=== PATIENT | female | born 2000 | race Caucasian/White ===

== ENCOUNTER 2023-08-12 07:49 | Inpatient (IN) ==
[2023-08-12] MEDS ORDERED: LIDOCAINE 1% LOCAL 20 ML VIAL INFIL PRN (08:06)
[2023-08-12] MEDS ORDERED: CALCIUM CARBONATE 500 MG CHEWABLE TAB PO PRN (08:06)
[2023-08-12] MEDS ORDERED: OXYTOCIN 30 UNITS/NSS 30 UNITS/500 ML BAG IV PRN (08:06)
--- NOTE | 2023-08-12 08:14 | History & Physical Report ---
Date of Service August 12, 2023 Assessment & Plan (1) Encounter for induction of labor: Plan: pitocin arom when indicated monitor tracing, category 1 Admission and Anticipated Discharge Date Admission Date: August 12, 2023 History of Present Illness Primary Care Provider: Thompson Quintero MD 23 yo at 39w3d admitted for IOL. Attempted nails placement last night, unable to place Denies MCDANIELS, CP, SOB, N/V/D, LE pain. GBS neg, RH+, +FM, -LOF, -CTX Allergies Allergy/AdvReac Type Severity Reaction Status Date / Time No Known Allergies Allergy Mild Verified 08/12/23 08:31 Home Medications Medication Instructions Recorded Confirmed Type aspirin 81 mg tablet 81 mg PO DAILY 08/11/23 08/12/23 History ferrous sulfate 325 mg (65 mg 325 mg PO Q OTHER DAY 08/11/23 08/12/23 History iron) tablet vits no.124-ferrous fum 1 tab PO DAILY 08/12/23 08/12/23 History 27 mg iron-folic acid 800 mcg tablet ( Vitamin) Patient History Medical History Varicella vaccination Morbid obesity with BMI of 40.0-44.9, adult History of COVID-19 diagnosed 03/2020--mild symptoms, no symptoms now Macromastia Anxiety and depression Seizure-like activity per pt seizure was ruled out. last seizure november 2019. Convulsive syncope hx of--followed with [facility]--was cleared of cardiac issues and follows with PCP Chest discomfort hx of--followed with [facility]--was cleared of cardiac issues and follows with PCP Surgical History S/P bilateral breast reduction History of wisdom tooth extraction Family History Father Hyperlipemia Hypertension Grandmother Type 2 diabetes mellitus Factor V Leiden mutation Hypertension Grandfather Hypertension Other Myocardial infarction No family history of adverse response to anesthesia Denies family history of Ovarian cancer Prostate cancer Breast cancer Colorectal cancer Social History Smoking Status: Never smoker Tobacco Type: E-cigarettes / Vaping Second Hand Exposure: No; Do You Dip or Chew Tobacco: No; Hx Alcohol Use: Yes Hx Substance Use: No Preferred Language: Honduran Communication Ability: Effective Pneumatic Jacketer Required: No Beliefs That Will Affect Care: None marital status: Single marital status details: nishant Fuentes (23) [phone] Current Living Situation: Family Current Living Situation Comment: mom/dad, sister and Jean-Pierre current occupational status: employed current occupation: [email or web address] Other Information That Helps Us Care for You: No Feels Safe at Home: Yes Safety Concerns: Feels Safe At This Time Childhood Exposure to Second-Hand Smoke: No Dental Care, Regularly: Yes Assistive Devices: Glasses OB History History : 1 Full term: 0 Premature: 0 Total Number of Induced Abortions: 0 Total Number of Spontaneous Abortions: 0 Ectopics: 0 Multiple births: 0 Number of Living Children: 0 Menstrual History Last menstrual period: Yes Menstrual reliability: definite Flow: normal Menstrual regularity: regular Monthly: Yes Age at menarche: 12 On control pills at conception: No Date of positive home test: 12/13/22 Menstrual history comments: cycles 28 days Details: never had pap smear Review of Systems reviewed, per HPI Physical Exam Physical Exam: General: patient resting comfortably, NAD, non-toxic in appearance, answers questions appropriately. Skin: warm, dry, intact HEENT: NC/AT, anicteric sclera, conjunctiva without injection, moist mucus membranes Heart: +S1/S2, regular, no m/r/g Lungs: equal air entry bilaterally, no rales/rhonchi/wheezes Abd: +BS, soft, NT, gravid uterus Cervical: per attending Ext: warm, no clubbing/cyanosis or edema Neuro: nonfocal, speech intact, no facial droop, moving all extremities. : FHR baseline 130s, moderate variability, accelerations present, decelerations absent Results & Data Vital Signs (Past 12 Hours) Vital Signs Pulse BP 08/12/23 08:08 81 137/72 Supervising Physician Co-Signing Physician Notes Resident Physician Supervision Note: I interviewed and examined the patient. Discussed with Dr. Terrell and agree with findings and plan as documented in the note. Any exceptions or clarifications are listed here: 23yo @ 39 3/7, IOL. Nails bulb placed twice last night per Dr Casper, fell out both times. Cervix exam this morning, 1-2/thick/-2. Soft cervix. Posterior. FHT Cat 1, no contractions. Will plan for pitocin for IOL. Patient agreeable. She will desire epidural at some point. Documented By: Jo Ann Proctor, DO Resident Activity Tracking Resident Involvement: Resident Care Provided Care Provided: Adult Hospital Medicine
[2023-08-12 08:52] LABS: Hematocrit (blood only) 29.2 % (37.0-47.0); Hemoglobin 9.2 g/dl (12.0-16.0); Mean Corpuscular Hemoglobin 25.1 pg (25.0-34.0); Mean Corpuscular Hgb Conc 31.5 g/dL (32.0-36.0); Mean Corpuscular Volume 79.8 fL (80.0-100.0); Mean Platelet Volume 10.9 fL (9.4-12.4); Platelet Count 192 K/uL (130-400); RDW Coefficient of Variation 16.3 % (11.5-14.5); RDW Standard Deviation 46.6 fL (36.4-46.3); Red Blood Count 3.66 M/uL (4.20-5.40); White Blood Count 11.94 K/ul (4.8-10.8)
[2023-08-12] MEDS: OXYTOCIN 30 UNITS/NSS 30 UNITS/500 ML BAG IV PRN (12:28)
[2023-08-12] MEDS: LACTATED RINGER'S 1,000 ML IV PRN (20:29)
--- NOTE | 2023-08-12 20:55 | Labor Progress Brief Note ---
Date of Service August 12, 2023 Subjective Not feeling contractions. FHT Cat 1 [place] Q 2 Pit at 19. SVE 2/70/-2 Patient is getting frustrated and hungry and wants to walk around. Will stop pitocin. Allow to eat a sandwich and take a walk. Will then restart pitocin, AROM and continue induction. Assessment & Plan Admission and Anticipated Discharge Date Admission Date: August 12, 2023 Results & Data Vital Signs (Past 12 Hours) Vital Signs Temp Pulse Resp BP 08/12/23 19:22 18 08/12/23 19:22 36.8 C 18 08/12/23 19:22 76 08/12/23 19:22 134/79 08/12/23 17:45 71 08/12/23 17:45 137/75 08/12/23 17:15 36.9 C 20 08/12/23 16:52 69 08/12/23 16:52 136/77 08/12/23 15:52 93 H 08/12/23 15:52 142/70 H 08/12/23 15:30 36.9 C 20 08/12/23 14:51 70 08/12/23 14:51 132/72 08/12/23 13:30 16 08/12/23 13:30 80 08/12/23 13:30 129/68 08/12/23 12:27 78 08/12/23 12:27 136/89 08/12/23 11:14 36.6 C 08/12/23 11:11 36.8 C 75 16 127/75 08/12/23 11:10 75 08/12/23 11:10 127/75 Coding Level of Care Code None
--- NOTE | 2023-08-12 23:06 | Labor Progress Brief Note ---
Date of Service August 12, 2023 Subjective Has eaten, has ambulated. Feels much better. Cervix exam unchanged. FHT Cat 1 [place] occasional. Restart pitocin. AROM attempted - patient could not tolerate exam long enough to get amnihook in to rupture membranes. She does not feel ready for epidural yet. Advise repeat attempt at AROM after she gets epidural. Assessment & Plan Admission and Anticipated Discharge Date Admission Date: August 12, 2023 Results & Data Vital Signs (Past 12 Hours) Vital Signs Temp Pulse Resp BP 08/12/23 22:53 74 08/12/23 22:53 136/68 08/12/23 19:22 18 08/12/23 19:22 36.8 C 18 08/12/23 19:22 76 08/12/23 19:22 134/79 08/12/23 17:45 71 08/12/23 17:45 137/75 08/12/23 17:15 36.9 C 20 08/12/23 16:52 69 08/12/23 16:52 136/77 08/12/23 15:52 93 H 08/12/23 15:52 142/70 H 08/12/23 15:30 36.9 C 20 08/12/23 14:51 70 08/12/23 14:51 132/72 08/12/23 13:30 16 08/12/23 13:30 80 08/12/23 13:30 129/68 08/12/23 12:27 78 08/12/23 12:27 136/89 08/12/23 11:14 36.6 C 08/12/23 11:11 36.8 C 75 16 127/75 08/12/23 11:10 75 08/12/23 11:10 127/75 Coding Level of Care Code None
[2023-08-13] MEDS: ACETAMINOPHEN 325 MG TAB PO PRN (03:36)
--- NOTE | 2023-08-13 05:44 | Labor Progress Brief Note ---
Date of Service August 13, 2023 Subjective Has been sleeping off and on, feeling more with ctx, but not desiring epidural yet. FHT Cat 1. [place] Q 2-3 SVE 2/70/-2, AROM clear fluid with finger cot Assessment & Plan Admission and Anticipated Discharge Date Admission Date: August 12, 2023 Results & Data Vital Signs (Past 12 Hours) Vital Signs Temp Pulse Resp BP 08/13/23 04:54 67 119/59 L 08/13/23 03:54 68 125/67 08/13/23 02:54 36.6 C 74 18 133/85 08/13/23 01:54 83 18 130/78 08/13/23 00:54 67 18 124/60 08/12/23 23:54 18 08/12/23 23:54 18 08/12/23 23:54 69 08/12/23 23:54 133/70 08/12/23 22:53 18 08/12/23 22:53 36.6 C 18 08/12/23 22:53 74 08/12/23 22:53 136/68 08/12/23 19:22 18 08/12/23 19:22 36.8 C 18 08/12/23 19:22 76 08/12/23 19:22 134/79 08/12/23 17:45 71 08/12/23 17:45 137/75 Coding Level of Care Code None
--- NOTE | 2023-08-13 08:55 | Communication Note ---
Date of Service: August 13, 2023 pt noting ctx but not painful, pit at 20. arom earlier today. fhts categ 1. [place] q2-4. will plan to c/w pit, max increased. pt aware i am taking over her care.
[2023-08-13] MEDS ORDERED: ROPIVACAINE 0.5% PF 5 MG/ML 20 ML VIAL EPI PRN (11:47)
[2023-08-13] MEDS ORDERED: diphenhydrAMINE 50 MG/ML VIAL IV PRN ×2 (11:47→20:29)
[2023-08-13] MEDS ORDERED: SODIUM CHLORIDE 0.9% PF INJ 10 ML VIAL EPI PRN (11:47)
[2023-08-13] MEDS ORDERED: NALBUPHINE HCL 5 MG in SYRINGE 0 ML IV PRN ×2 (11:47→20:29)
[2023-08-13] MEDS ORDERED: NALOXONE HCL 0.4 MG/1 ML VIAL/CARP IV PRN ×2 (11:47→20:29)
[2023-08-13] MEDS ORDERED: LIDOCAINE 2% MPF LOCAL 5 ML VIAL EPI PRN (11:47)
[2023-08-13] MEDS ORDERED: fentaNYL citrate PF 100 MCG/2 ML VIAL EPI PRN (11:47)
[2023-08-13] MEDS ORDERED: BUPIVACAINE 0.25% PF 30 ML VIAL EPI PRN (11:47)
[2023-08-13] MEDS ORDERED: ePHEDrine sulfate 50 MG/ML AMP IV PRN ×2 (11:47→20:29)
[2023-08-13] MEDS ORDERED: NALOXONE HCL 1 MG in SODIUM CHLORIDE 0.9% 1,000 ML IV PRN ×2 (11:47→20:29)
--- NOTE | 2023-08-13 11:47 | Anesthesiology Consultation ---
Date of Service August 13, 2023 Assessment & Plan Chart Review Chart Review: Acceptable Risk for Labor Epidural Consults Requested none History Height/Weight Height: 5 ft 5 in Weight: 119.295 kg Allergies Allergy/AdvReac Type Severity Reaction Status Date / Time No Known Allergies Allergy Mild Verified 08/12/23 08:31 Medications Home Medications Medication Instructions Recorded Confirmed Last Taken aspirin 81 mg tablet 81 mg PO DAILY 08/11/23 08/12/23 08/11/23 06:00 ferrous sulfate 325 mg (65 mg 325 mg PO Q OTHER DAY 08/11/23 08/12/23 08/11/23 06:00 iron) tablet vits no.124-ferrous fum 1 tab PO DAILY 08/12/23 08/12/23 08/11/23 08:00 27 mg iron-folic acid 800 mcg tablet ( Vitamin) Active Medications Generic Name Dose Route Start Last Admin Trade Name Freq PRN Reason Stop Dose Admin Acetaminophen 650 mg 08/12/23 08:06 08/13/23 03:36 Acetaminophen 325 Mg Tab PO 09/11/23 08:05 650 mg Q6H PRN Administration Pain Oxytocin 30 units in 500 mls @ 26 mls/hr 08/12/23 08:06 08/13/23 10:00 Pitocin 30 Units/Nss IV 08/14/23 08:05 1.56 units/hr .[id number] PRN 26 mls/hr Labor Induction/Augmentation Titration Protocol 1.56 UNITS/HR Lactated Ringer's 1,000 mls @ 125 mls/hr 08/12/23 08:06 08/13/23 11:33 Lr IV 08/14/23 08:05 999 mls/hr .Q8H PRN Administration L&D Protocol Protocol Past Medical History Medical History Varicella vaccination Morbid obesity with BMI of 40.0-44.9, adult History of COVID-19 diagnosed 03/2020--mild symptoms, no symptoms now Macromastia Anxiety and depression Seizure-like activity per pt seizure was ruled out. last seizure november 2019. Convulsive syncope hx of--followed with [facility]--was cleared of cardiac issues and follows with PCP Chest discomfort hx of--followed with [facility]--was cleared of cardiac issues and follows with PCP Past Family History Family History Father Hyperlipemia Hypertension Grandmother Type 2 diabetes mellitus Factor V Leiden mutation Hypertension Grandfather Hypertension Other Myocardial infarction No family history of adverse response to anesthesia Denies family history of Ovarian cancer Prostate cancer Breast cancer Colorectal cancer Past Surgical History Surgical History S/P bilateral breast reduction History of wisdom tooth extraction Social History Smoking Status: Never smoker tobacco type: e-cigarettes Do You Dip or Chew Tobacco: No Hx Alcohol Use: Yes alcohol intake frequency: a few times a month Hx Substance Use: No substance use type: does not use Physical Exam Vital Signs Last Vital Signs Temp 36.8 C 08/13/23 09:00 Pulse 65 08/13/23 10:54 Resp 18 08/13/23 07:00 BP 135/81 08/13/23 10:54 Testing Laboratory Results 08/12/23 08:22 Blood Type A Positive 08/12/23 08:22 Blood Type Cancelled 08/12/23 08:22 Antibody Screen Cancelled 08/12/23 08:22 Antibody Screen NEGATIVE 08/12/23 08:22
[2023-08-13] MEDS: LIDOCAINE 2%/EPINEPHRINE 1:200,000 20 ML PF ONE (12:18)
[2023-08-13] MEDS: fentANYL 2 MCG/ML BUPIVacaine 0.125%-NSS 100ML BAG ONE (12:18)
[2023-08-13] MEDS: BUPIVACAINE 0.25% PF 30 ML VIAL ONE (12:23)
[2023-08-13] MEDS: SODIUM CHLORIDE 0.9% PF INJ 10 ML VIAL ONE (12:23)
[2023-08-13] MEDS: fentaNYL citrate PF 100 MCG/2 ML VIAL ONE (12:23)
[2023-08-13] MEDS: fentaNYL citrate PF 100 MCG/2 ML VIAL EPI STA (14:02)
[2023-08-13] MEDS: LIDOCAINE 2%/EPINEPHRINE 1:200,000 20 ML PF EPI STA (14:02)
[2023-08-13] MEDS: BUPIVACAINE 0.25% PF 30 ML VIAL EPI STA (14:02)
[2023-08-13] MEDS: SODIUM CHLORIDE 0.9% PF INJ 10 ML VIAL EPI STA (14:02)
[2023-08-13] MEDS: ePHEDrine sulfate 50 MG/ML AMP ONE (18:23)
[2023-08-13] MEDS: fentANYL 2 MCG/ML BUPIVacaine 0.125%-NSS 100ML BAG EPI PRN (18:58)
--- NOTE | 2023-08-13 19:28 | Labor Progress Brief Note ---
Date of Service August 13, 2023 Subjective pt with adeq mvu 's for at least 3hr and i am noting variable decels and want to examine pt. she notes feeling some pressure. Assessment & Plan (1) Encounter for induction of labor: (2) Failure to progress in labor: Plan Discussed with patient my concerns for now categ 2 tracing remote from delivery. Using pitocin at 32 for many hours and on placement of iupc about 3+hrs ago, immediately was adequate mvu's, so suspect have been adequate longer and still no cx change of any significance. We have placed a nails and i did d/w pt and her mom that i can give her body more time if she wanted and the fhts improved with position change but would rec c/s now due to all of above. She was given time to consider all of this and nursing notifies me she has elected c/s. Pit d/c'd. Consent to be reviewed and signed. Nursery and anesth to be made aware. Plan preop abx. Partner apparently left the building and they are calling him back. Admission and Anticipated Discharge Date Admission Date: August 12, 2023 Physical Exam Constitutional: WD/WN, vitals as above Genitourinary: Manual OB Exam: + cervical dilation 4 cm, + cervical effacement 80% and + station -2 OB Exam Monitor Tracing: + external FHT monitor used, + intra-uterine pressure catheter used (adeq mvu's ), + category II, + normal FHT variability and + variable decelerations Results & Data Vital Signs (Past 12 Hours) Vital Signs Temp Pulse Resp BP Pulse Ox 08/13/23 19:16 97 H 100 08/13/23 19:11 74 100 08/13/23 19:06 99 08/13/23 19:06 93 H 08/13/23 19:06 74 121/72 08/13/23 19:01 71 100 08/13/23 18:56 72 100 08/13/23 18:51 62 114/72 99 08/13/23 18:46 66 97 08/13/23 18:41 66 98 08/13/23 18:36 98 08/13/23 18:36 67 08/13/23 18:36 67 113/67 08/13/23 18:31 68 98 08/13/23 18:30 20 08/13/23 18:30 20 08/13/23 18:26 66 99 05 18:22 70 111/73 08/13/23 18:21 67 99 08/13/23 18:16 70 100 08/13/23 18:11 68 100 08/13/23 18:06 71 123/74 100 08/13/23 18:01 90 100 08/13/23 18:00 20 08/13/23 18:00 20 08/13/23 17:56 66 97 08/13/23 17:52 73 118/63 08/13/23 17:51 67 98 08/13/23 17:46 73 97 08/13/23 17:41 68 97 08/13/23 17:36 66 119/62 98 08/13/23 17:31 72 97 08/13/23 17:30 20 08/13/23 17:30 20 08/13/23 17:26 79 98 08/13/23 17:21 100 08/13/23 17:21 86 08/13/23 17:21 88 125/64 08/13/23 17:16 73 99 08/13/23 17:11 80 99 08/13/23 17:06 80 129/71 99 08/13/23 17:01 75 98 08/13/23 17:00 18 08/13/23 17:00 98.8 F 18 08/13/23 16:56 83 97 08/13/23 16:51 99 08/13/23 16:51 74 08/13/23 16:51 76 132/73 08/13/23 16:46 82 100 08/13/23 16:41 70 99 08/13/23 16:37 76 136/73 08/13/23 16:36 74 97 08/13/23 16:31 79 98 08/13/23 16:30 20 08/13/23 16:26 79 99 05 16:22 72 121/63 08/13/23 16:21 71 98 08/13/23 16:16 71 98 08/13/23 16:11 79 98 08/13/23 16:06 98 08/13/23 16:06 71 08/13/23 16:06 82 123/74 08/13/23 16:01 79 99 08/13/23 16:00 18 08/13/23 15:56 77 96 05 15:51 97 05 15:51 74 05 15:51 77 120/62 05 15:46 76 98 05 15:41 76 97 08/13/23 15:37 75 128/72 05 15:36 77 98 05 15:31 77 98 05 15:30 18 08/13/23 15:30 18 08/13/23 15:26 110 H 97 08/13/23 15:22 71 126/61 05 15:21 73 97 08/13/23 15:16 78 97 05 15:11 75 96 05 15:06 74 127/61 97 08/13/23 15:01 78 97 08/13/23 15:00 98.8 F 20 08/13/23 14:56 76 96 08/13/23 14:51 65 121/67 97 08/13/23 14:46 68 97 08/13/23 14:41 64 97 08/13/23 14:36 97 08/13/23 14:36 91 H 08/13/23 14:36 69 119/63 05 14:31 71 96 08/13/23 14:30 18 08/13/23 14:26 64 97 08/13/23 14:21 69 117/67 97 08/13/23 14:16 78 98 08/13/23 14:11 66 97 08/13/23 14:06 97 08/13/23 14:06 73 05 14:06 67 117/60 05 14:01 73 98 08/13/23 14:00 20 08/13/23 13:56 68 97 08/13/23 13:52 75 117/56 L 08/13/23 13:51 79 98 08/13/23 13:46 80 99 08/13/23 13:45 18 08/13/23 13:41 93 H 99 08/13/23 13:36 88 99 08/13/23 13:34 64 129/61 05 13:31 68 97 05 13:30 20 08/13/23 13:29 71 127/66 05 13:26 69 97 05 13:25 73 125/63 05 13:24 69 125/64 05 13:21 65 97 05 13:20 78 130/68 05 13:16 63 98 05 13:15 20 08/13/23 13:14 66 127/66 08/13/23 13:11 80 99 05 13:09 81 121/66 08/13/23 13:06 72 99 08/13/23 13:05 68 121/67 08/13/23 13:01 99 08/13/23 13:01 70 05 13:01 70 117/65 05 13:00 18 08/13/23 13:00 98.4 F 08/13/23 12:56 67 99 08/13/23 12:54 73 119/87 08/13/23 12:51 81 99 08/13/23 12:49 74 117/72 08/13/23 12:46 66 100 05 12:45 18 08/13/23 12:44 63 116/65 08/13/23 12:41 76 100 08/13/23 12:40 77 123/70 05 12:36 77 100 05 12:34 75 125/64 05 12:31 75 100 08/13/23 12:30 20 08/13/23 12:29 72 126/63 05 12:26 71 100 05 12:24 76 131/68 05 12:21 81 100 05 12:16 80 100 05 12:15 18 08/13/23 12:14 86 134/69 05 12:11 86 100 05 12:06 93 H 83 L 08/13/23 12:01 82 100 05 11:55 73 118/56 L 08/13/23 11:00 18 08/13/23 11:00 98.6 F 18 08/13/23 10:54 65 135/81 05 09:55 70 134/72 05 09:00 98.2 F 08/13/23 08:55 65 127/62 08/13/23 07:54 85 130/66 Coding Level of Care Code None Diagnoses Encounter for induction of labor Z34.90 Failure to progress in labor O62.2
[2023-08-13] MEDS ORDERED: AZITHROMYCIN 500 MG in DEXTROSE 5% 250 ML IV SCH (19:45)
[2023-08-13] MEDS ORDERED: LACTATED RINGER'S 1,000 ML IV SCH ×2 (19:45→21:29)
[2023-08-13] MEDS ORDERED: fentaNYL citrate PF 100 MCG/2 ML VIAL ONE (19:47)
[2023-08-13] MEDS ORDERED: LIDOCAINE 2%/EPINEPHRINE 1:200,000 20 ML PF ONE ×2 (19:47)
[2023-08-13] MEDS ORDERED: MoRPHine SULFATE PF 1 MG/ML 10 ML AMP/VIAL ONE (19:47)
[2023-08-13] MEDS: ceFAZolin 3000MG 3,000 MG/72.5 ML BAG IV SCH (19:53)
[2023-08-13] MEDS ORDERED: OXYTOCIN 10 UNITS/ML VIAL ONE ×3 (19:54)
[2023-08-13] MEDS ORDERED: ONDANSETRON INJ 2 MG/ML 2 ML VIAL ONE (20:21)
[2023-08-13] MEDS ORDERED: DROPERIDOL 5 MG/2 ML VIAL IV PRN (20:29)
[2023-08-13] MEDS ORDERED: LACTATED RINGER'S 500 ML IV PRN (20:29)
[2023-08-13] MEDS ORDERED: NALOXONE HCL 0.08 MG in SYRINGE 1.8 ML IV PRN (20:29)
[2023-08-13] MEDS ORDERED: HYDROmorphone INJ 0.5 MG/0.5 ML SYR IV PRN (20:29)
[2023-08-13] MEDS ORDERED: MoRPHine SULFATE PF 1 MG/ML 10 ML AMP/VIAL INT SPINAL ONE (20:29)
[2023-08-13] MEDS ORDERED: NO NARCOTICS OR SEDATIVES SCH (20:30)
[2023-08-13] MEDS ORDERED: SODIUM CHLORIDE 0.9% 1,000 ML IV SCH (20:30)
[2023-08-13] MEDS ORDERED: DC INTRASPINAL MORPHINE SCH (20:30)
--- NOTE | 2023-08-13 21:03 | Operative Report ---
PG Post Operative Report Pre & Post Diagnosis Operation Date: 08/13/23 19:25 <No data on this case meets the specified criteria> Preop dx: term iup, failure to progress, obesity Postop dx: same I identified the patient and participated in the time-out.: Yes Procedure Operation Date: 08/13/23 19:25 <No data on this case meets the specified criteria> Primary Low Transverse Section Surgeon Karen Pierson MD, FACOG Security Project Manager Vianca Estimated Blood Loss 500 (QBL not calculated as of yet. ) Findings Consistent with Post-Op Diagnosis (viable female , apgars pending. normal uterus, tubes and ovaries bilaterally) Fluids 1000cc Specimens cord blood Drains nails Anesthesia Type Labor Epidural Complications none Disposition Accompanied Patient To Recovery: No Disposition: L&D Indications 23yo at 39+wks who presented to yesterday for planned induction, obesity. She was given pitocin and arom and progressed to 4cm but despite adequate labor pattern as measured by iupc, she did not progress. Recommended to proceed with section. Description of Procedure The patient was taken to the operating room and identified. After adequate anesthesia was obtained, she was placed in the supine position with a leftward tilt on the operating table and prepped and draped in the usual sterile fashion. A nails catheter had already been placed. The knife was used to create a Pfannensteil skin incision that was carried down to the underlying layer of fascia. The fascia was nicked in the midline and this opening was extended laterally using Fofana scissors. Waqar clamps were placed on the superior and inferior aspect of the fascial incision tenting it upward and the underlying rectus muscles were dissected off the overlying fascia both sharply and bluntly using Fofana scissors. The rectus muscles were bluntly in the midline. The peritoneal cavity was bluntly entered into. This opening was stretched. The bladder blade was placed. The vesicouterine peritoneum was elevated and opened up into and the bladder flap was created digitally and bladder blade was replaced. The knife was used to create a hysterotomy and this opening was stretched. The operators hand was placed through the hysterotomy and the bladder blade was removed. The head was elevated and flexed and with fundal pressure the head was delivered. The shoulders and body were rapidly delivered. The cord was clamped and cut and the infant's mouth and nares were bulb suction. The infant was handed off to the awaiting pediatricians. Cord blood was obtained. The placenta was manually expressed. The uterus was exteriorized and cleared of all clots and debris. Dilute IV Pitocin was begun. The uterine tone was improving. The hysterotomy was closed in a running interlocking fashion using 0 Vicryl followed by a second imbricating layer of 0 Vicryl. The hysterotomy was hemostatic. The pelvis was irrigated. The uterus was returned to the abdomen, small bleeding site in center of hysterotomy reapproximated with figure of eight of 0-vicryl for excellent hemostasis. The gutters were cleared of all clots and debris. The hysterotomy was reinspected and noted to be hemostatic. The fascia was then closed in running fashion using 0 Vicryl. The subcutaneous fat was copiously irrigated and reapproximated using 2-0 chromic. The skin was closed in a subcuticular fashion using 4-0 monocryl. At this point the procedure was terminated. The patient was transferred to the recovery room in stable condition. All sponge, lap and needle counts are correct x2. I attest to the content of the Intraoperative Record and any orders documented therein. Any exceptions are noted below. OB Procedure Charges 87229
[2023-08-13] MEDS ORDERED: MAGNESIUM HYDROXIDE SUSP 30 ML UDC PO PRN (21:29)
[2023-08-13] MEDS ORDERED: DIPHTHER/TETAN/PERTUS Vaccine (Tdap, Adol/Adult) 0.5mL IM ONE (21:29)
[2023-08-13] MEDS ORDERED: SENNA 8.6 MG TAB PO PRN (21:29)
[2023-08-13] MEDS ORDERED: BENZOCAINE 20% SPRY 85 APPLN/85 GM CAN EXT PRN (21:29)
[2023-08-13] MEDS ORDERED: HYDROCORTISONE ACETATE 25 MG SUPP PR PRN (21:29)
[2023-08-13] MEDS: ONDANSETRON INJ 2 MG/ML 2 ML VIAL IV PRN (21:47)
[2023-08-13] MEDS: OXYTOCIN 20 UNITS/LR 1,002 ML IV SCH (23:26)
[2023-08-13] MEDS: KETOROLAC 30 MG/ML VIAL IV PRN (23:53)
[2023-08-14] MEDS ORDERED: SODIUM CHLORIDE 0.9% 250 ML IV PRN (00:02)
--- NOTE | 2023-08-14 06:40 | Obstetrical Progress Note ---
Date of Service August 14, 2023 Assessment & Plan (1) care following delivery: Plan Doing well Encourage ambulation Pain control Routine post op care Admission and Anticipated Discharge Date Admission Date: August 12, 2023 Supervising Physician Co-Signing Physician Notes Resident Physician Supervision Note: I was present with Dr. Terrell during the history and exam. I discussed the case with the resident and agree with the findings and plan as documented in the note. Any exceptions or clarifications are listed here: stable, had some emesis, but now taking po liquids. no flatus. no bleeding issues, breast feeding. abd soft ff 2 down nt, incision c/d/i, ext nt calves. pod #1 s/p c/s doing well, hgb noted. routine pp care. Documented By: Karen Pierson MD, FACOG Subjective 23 yo post op day 1 s/p Ambulation: not yet ambulating Voiding: nails in place Passing Gas:: not yet Diet Tolerance:: poor Lochia:: Small Feeding Type:: bottle feeding Current Pain Level: minimal Resting comfortably this AM in NAD. Denies MCDANIELS, CP, SOB, LE pain/swelling. +N/V rec'd zofran overnight Review of Systems Review of Systems: reviewed, per HPI Physical Exam Physical Exam: General: patient resting comfortably, NAD, non-toxic in appearance, answers questions appropriately. Skin: warm, dry, intact HEENT: NC/AT, anicteric sclera, conjunctiva without injection, moist mucus membranes. Heart: +S1/S2, regular, no m/r/g Lungs: equal air entry bilaterally, no rales/rhonchi/wheezes Abd: +BS, soft, NT/ND, uterine fundus firm at umbilicus, caesarean incision C/D/I. Ext: warm, no clubbing/cyanosis or edema, Kayce's neg. Neuro: nonfocal, speech intact, no facial droop, moving all extremities. Results & Data Vital Signs (Past 12 Hours) Vital Signs Temp Pulse Pulse Resp BP BP Pulse Ox 08/14/23 06:15 18 98 08/14/23 04:15 18 97 08/14/23 03:50 36.5 C 70 18 127/85 99 08/14/23 03:15 18 98 08/14/23 02:15 18 99 08/14/23 01:15 18 98 08/14/23 01:15 36.6 C 62 18 104/65 98 08/14/23 00:15 18 98 08/14/23 00:15 36.4 C L 61 18 118/75 98 08/13/23 23:21 74 97 08/13/23 23:16 64 97 08/13/23 23:15 67 127/69 08/13/23 23:11 88 97 08/13/23 23:06 73 97 08/13/23 23:05 71 112/55 L 08/13/23 23:01 75 97 08/13/23 22:56 77 96 08/13/23 22:55 76 115/56 L 08/13/23 22:51 74 97 08/13/23 22:46 73 98 08/13/23 22:45 71 18 104/55 L 08/13/23 22:41 69 98 08/13/23 22:36 75 98 08/13/23 22:35 76 108/55 L 08/13/23 22:31 81 98 08/13/23 22:26 79 98 08/13/23 22:25 78 110/55 L 08/13/23 22:21 75 97 08/13/23 22:16 78 97 08/13/23 22:15 75 18 109/57 L 08/13/23 22:11 72 98 08/13/23 22:06 74 98 08/13/23 22:05 81 18 106/59 L 08/13/23 22:01 78 98 08/13/23 21:56 71 98 08/13/23 21:55 18 08/13/23 21:55 79 18 130/62 08/13/23 21:51 80 97 08/13/23 21:46 104 H 97 08/13/23 21:45 89 18 106/58 L 08/13/23 21:41 85 97 08/13/23 21:36 78 97 08/13/23 21:35 82 18 114/62 08/13/23 21:31 91 H 97 08/13/23 21:26 92 H 96 08/13/23 21:25 85 18 102/51 L 08/13/23 21:21 90 94 08/13/23 21:17 18 08/13/23 21:17 37.1 C 78 18 115/56 L 08/13/23 21:16 93 08/13/23 21:16 84 08/13/23 21:16 85 92 08/13/23 19:56 77 100 08/13/23 19:52 76 130/68 08/13/23 19:51 74 100 08/13/23 19:46 71 100 08/13/23 19:41 71 100 08/13/23 19:37 83 145/74 H 08/13/23 19:36 86 100 08/13/23 19:31 76 100 08/13/23 19:26 91 H 100 08/13/23 19:21 73 129/71 100 08/13/23 19:16 97 H 100 08/13/23 19:11 74 100 08/13/23 19:06 99 08/13/23 19:06 93 H 08/13/23 19:06 74 121/72 08/13/23 19:01 71 100 08/13/23 18:56 72 100 08/13/23 18:51 62 114/72 99 08/13/23 18:46 66 97 08/13/23 18:41 66 98 O2 Del Method 08/14/23 06:15 08/14/23 04:15 08/14/23 03:50 Room Air 08/14/23 03:15 08/14/23 02:15 08/14/23 01:15 08/14/23 01:15 Room Air 08/14/23 00:15 08/14/23 00:15 Room Air 08/13/23 23:21 08/13/23 23:16 08/13/23 23:15 08/13/23 23:11 08/13/23 23:06 08/13/23 23:05 08/13/23 23:01 08/13/23 22:56 08/13/23 22:55 08/13/23 22:51 08/13/23 22:46 08/13/23 22:45 08/13/23 22:41 08/13/23 22:36 08/13/23 22:35 08/13/23 22:31 08/13/23 22:26 08/13/23 22:25 08/13/23 22:21 08/13/23 22:16 08/13/23 22:15 08/13/23 22:11 08/13/23 22:06 08/13/23 22:05 08/13/23 22:01 08/13/23 21:56 08/13/23 21:55 08/13/23 21:55 08/13/23 21:51 08/13/23 21:46 08/13/23 21:45 08/13/23 21:41 08/13/23 21:36 08/13/23 21:35 08/13/23 21:31 08/13/23 21:26 08/13/23 21:25 08/13/23 21:21 08/13/23 21:17 08/13/23 21:17 08/13/23 21:16 08/13/23 21:16 08/13/23 21:16 08/13/23 19:56 08/13/23 19:52 08/13/23 19:51 08/13/23 19:46 08/13/23 19:41 08/13/23 19:37 08/13/23 19:36 08/13/23 19:31 08/13/23 19:26 08/13/23 19:21 08/13/23 19:16 08/13/23 19:11 08/13/23 19:06 08/13/23 19:06 08/13/23 19:06 08/13/23 19:01 08/13/23 18:56 08/13/23 18:51 08/13/23 18:46 08/13/23 18:41 Resident Activity Tracking Resident Involvement: Resident Care Provided Care Provided: Adult Hospital Medicine
[2023-08-14 06:44] LABS: Basophils # (auto) 0.06 K/uL (0.00-0.20); Basophils % (auto) 0.4 %; Eosinophils # (auto) 0.01 K/uL (0.00-0.50); Eosinophils % (auto) 0.1 %; Hematocrit (blood only) 29.3 % (37.0-47.0); Immature Granulocytes # (auto) 0.25 K/uL (0.01-0.20); Immature Granulocytes % (auto) 1.8 %; Lymphocytes # (auto) 1.03 K/uL (1.20-3.40); Lymphocytes % (auto) 7.4 %; Mean Corpuscular Hemoglobin 24.8 pg (25.0-34.0); Mean Corpuscular Hgb Conc 30.7 g/dL (32.0-36.0); Mean Corpuscular Volume 80.7 fL (80.0-100.0); Mean Platelet Volume 11.7 fL (9.4-12.4); Monocytes # (auto) 0.67 K/uL (0.11-0.59); Monocytes % (auto) 4.8 %; Neutrophils % (auto) 85.5 %; Platelet Count 189 K/uL (130-400); RDW Coefficient of Variation 16.2 % (11.5-14.5); Red Blood Count 3.63 M/uL (4.20-5.40); White Blood Count 13.92 K/ul (4.8-10.8)
[2023-08-14] MEDS: SIMETHICONE 80 MG CHEW PO SCH (07:41)
[2023-08-14] MEDS: FERROUS SULFATE 325 MG TAB PO SCH (07:41)
[2023-08-14] MEDS: DOCUSATE SODIUM 100 MG CAP PO SCH (07:41)
[2023-08-14] MEDS: PRENATAL VITAMIN 1 TAB PO SCH (07:42)
[2023-08-14] MEDS ORDERED: KETOROLAC 30 MG/ML VIAL IV PRN (14:29)
[2023-08-14] MEDS ORDERED: PROMETHAZINE HCL 25 MG in SODIUM CHLORIDE 0.9% 50 ML IV PRN (14:29)
[2023-08-14] MEDS ORDERED: ONDANSETRON INJ 2 MG/ML 2 ML VIAL IV PRN (14:29)
[2023-08-14] MEDS ORDERED: diphenhydrAMINE Capsule 25 MG CAP PO PRN (14:29)
[2023-08-14] MEDS ORDERED: diphenhydrAMINE 50 MG/ML VIAL IV PRN (14:29)
[2023-08-14] MEDS: IBUPROFEN 600 MG TAB PO PRN (15:47)
[2023-08-14] MEDS: bisacodyL 5 MG TABEC PO SCH (20:21)
[2023-08-14] MEDS: oxyCODONE/ACETAMINOPHEN 5mg/325mg TAB PO PRN (21:41)
[2023-08-15] MEDS ORDERED: bisacodyL 10 MG SUPP PR PRN
--- NOTE | 2023-08-15 06:31 | Obstetrical Progress Note ---
Date of Service August 15, 2023 Assessment & Plan (1) care following delivery: Plan Doing well Encourage ambulation Pain control Routine post op care Anticipate dc tomorrow Admission and Anticipated Discharge Date Admission Date: August 12, 2023 Supervising Physician Co-Signing Physician Notes Resident Physician Supervision Note: I interviewed and examined the patient. Discussed with Dr. Terrell and agree with findings and plan as documented in the note. Any exceptions or clarifications are listed here: POD2 s/p pltcs, doing well. VSS, exam benign and wnl. Incision c/d/i. Continue care Documented By: Vera Coley MD Subjective 23 yo post op day 2 s/p Ambulation: ambulating normally Voiding: no voiding problems Passing Gas:: Yes Diet Tolerance:: regular diet Lochia:: Small Feeding Type:: bottle feeding Current Pain Level: moderate Resting comfortably this AM in NAD. Denies MCDANIELS, CP, SOB, N/V/D, LE pain/swelling. Review of Systems Review of Systems: reviewed, per HPI Physical Exam Physical Exam: General: patient resting comfortably, NAD, non-toxic in appearance, answers questions appropriately. Skin: warm, dry, intact HEENT: NC/AT, anicteric sclera, conjunctiva without injection, moist mucus membranes. Heart: +S1/S2, regular, no m/r/g Lungs: equal air entry bilaterally, no rales/rhonchi/wheezes Abd: +BS, soft, NT/ND, uterine fundus firm at umbilicus, caesarean incision C/D/I. Ext: warm, no clubbing/cyanosis or edema, Kayce's neg. Neuro: nonfocal, speech intact, no facial droop, moving all extremities. Results & Data Vital Signs (Past 12 Hours) Vital Signs Temp Pulse Resp BP Pulse Ox O2 Del Method 08/14/23 23:45 36.6 C 78 18 111/72 97 Room Air 08/14/23 23:45 Room Air 08/14/23 19:30 36.9 C 90 16 117/78 99 Room Air Resident Activity Tracking Resident Involvement: Resident Care Provided Care Provided: Adult Hospital Medicine
[2023-08-15 06:50] LABS: Hematocrit (blood only) 29.9 % (37.0-47.0); Hemoglobin 9.3 g/dl (12.0-16.0)
--- NOTE | 2023-08-16 07:00 | Obstetrical Progress Note ---
Date of Service August 16, 2023 Assessment & Plan (1) care following delivery: Plan Doing well Encourage ambulation Pain control Routine post op care DC today Admission and Anticipated Discharge Date Admission Date: August 12, 2023 Supervising Physician Co-Signing Physician Notes Resident Physician Supervision Note: I interviewed and examined the patient. Discussed with Dr. Terrell and agree with findings and plan as documented in the note. Any exceptions or clarifications are listed here: [None] Documented By: Paula Guido MD, FACOG Subjective 23 yo post op day 3 s/p Ambulation: ambulating normally Voiding: no voiding problems Passing Gas:: Yes Diet Tolerance:: regular diet Lochia:: Small Feeding Type:: bottle feeding Current Pain Level: moderate Resting comfortably this AM in NAD. Denies MCDANIELS, CP, SOB, N/V/D, LE pain/swelling. Review of Systems Review of Systems: reviewed, per HPI Physical Exam Physical Exam: General: patient resting comfortably, NAD, non-toxic in appearance, answers questions appropriately. Skin: warm, dry, intact HEENT: NC/AT, anicteric sclera, conjunctiva without injection, moist mucus membranes. Heart: +S1/S2, regular, no m/r/g Lungs: equal air entry bilaterally, no rales/rhonchi/wheezes Abd: +BS, soft, NT/ND, uterine fundus firm at umbilicus, caesarean incision C/D/I. Ext: warm, no clubbing/cyanosis or edema, Kayce's neg. Neuro: nonfocal, speech intact, no facial droop, moving all extremities. Results & Data Vital Signs (Past 12 Hours) Vital Signs Temp Pulse Resp BP Pulse Ox O2 Del Method 08/15/23 23:02 36.6 C 77 20 126/68 100 Room Air 08/15/23 19:29 36.5 C 73 20 118/76 100 Room Air Resident Activity Tracking Resident Involvement: Resident Care Provided Care Provided: Adult Hospital Medicine
--- NOTE | 2023-08-18 14:12 | Discharge Summary ---
Date of Service Date of admission: 08/12/23 Date of discharge: August 16, 2023 Admission HPI Per Admitting Provider 23 yo at 39w3d admitted for IOL. Attempted nails placement last night, unable to place Denies MCDANIELS, CP, SOB, N/V/D, LE pain. GBS neg, RH+, +FM, -LOF, -CTX Discharge Data Consultations 08/12/23 08:06 Consult Anesthesiology Stat Procedures Performed Operation Date: 08/13/23 19:25 Actual Procedures p Primary Low Transverse Section in - Karen Pierson MD, [facility] [place] Hospital Course (1) care following delivery: (2) Failure to progress in labor: Plan 23yo at 39+wks who presented to 08/12/23 for planned induction, obesity. She was given pitocin and arom and progressed to 4cm but despite adequate labor pattern as measured by iupc, she did not progress. Recommended to proceed with section--completed on 08/13/23. The patient underwent the above stated procedure without incident and her postoperative course and recovery was uncomplicated. On her postoperative day #3 she was tolerating a regular diet, voiding spontaneously, ambulating without problem and was using oral meds for adequate pain control. Her postoperative hemoglobin was 9.3. She was given written and verbal discharge instructions and told to followup in office at 6wks. She was given appropriate pain medicine prescriptions. Coding Level of Care Code None Diagnoses care following delivery Z39.2 Failure to progress in labor O62.2
== END 2023-08-16 15:45 | disposition home or self-care (01) | DRG 788 ==
LOC: 4S1 07:49 → 4E2 08-14 00:07
DX: O61.0 Failed medical induction of labor; U07.0 Vaping-related disorder; O99.214 Obesity complicating childbirth; E66.01 Morbid (severe) obesity due to excess calories; Z3A.39 39 weeks gestation of pregnancy; O99.334 Smoking (tobacco) complicating childbirth; Z79.82 Long term (current) use of aspirin; F17.290 Nicotine dependence, other tobacco product, uncomplicated; Z37.0 Single live birth; Z83.2 Family history of diseases of the blood and blood-forming organs and certain disorders involving the immune mechanism; Z86.16 Personal history of COVID-19

== ENCOUNTER 2024-12-09 05:31 | Inpatient (IN) ==
--- NOTE | 2024-12-01 12:18 | Anesthesiology Consultation ---
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 Chart Review Chart Review: entry level manager initiated History Surgery Operation Date: 12/09/24 07:30 Proposed Procedures p Section (Delivery of Baby Through Abdominal Incision) - Jo Ann Proctor DO s with Bilateral Tubal Ligation - Jo Ann Proctor DO Height/Weight Height: 5 ft 5 in Weight: 119.295 kg Allergies Allergy/AdvReac Type Severity Reaction Status Date / Time No Known Allergies Allergy Mild Verified 12/01/24 11:47 Medications Home Medications Medication Instructions Recorded Confirmed Last Taken acetaminophen 500 mg tablet 500 mg PO Q6H PRN Pain 10/20/24 12/01/24 Unknown (Tylenol Extra Strength) Past Medical History Medical History (Updated 12/01/24 @ 12:14 by Regina Vaca PA-C) Anxiety and depression Chest discomfort 2019, hx of--followed with [facility]--was cleared of cardiac issues and follows with PCP Convulsive syncope 2019, hx of--followed with [facility]--was cleared of cardiac issues and follows with PCP Disc degeneration, lumbar Eczema Elevated blood pressure reading hx, no recent issues Failure to progress in labor History of COVID-19 diagnosed 03/2020--mild symptoms, no symptoms now Morbid obesity with BMI of 40.0-44.9, adult Seizure-like activity per pt seizure was ruled out. last "activity" november 2019, "never actually called a seizure" Skin lesion of breast Slow to wake up after anesthesia "hard for her to stay awake after surgery, after breast reduction at [facility]" Varicella vaccination Past Family History Family History Father Hyperlipemia Hypertension Grandmother Type 2 diabetes mellitus Factor V Leiden mutation Hypertension Stroke Grandfather Hypertension Other Myocardial infarction No family history of adverse response to anesthesia Denies family history of Ovarian cancer Prostate cancer Breast cancer Colorectal cancer Past Surgical History Surgical History History of wisdom tooth extraction S/P bilateral breast reduction S/P section (2023) Social History Smoking Status: Former smoker tobacco type: e-cigarettes Do You Dip or Chew Tobacco: No Smoking End Date: 2022 Hx Alcohol Use: Yes alcohol intake frequency: holidays/special occasions only Alcohol Intake Frequency Comment: not while Hx Substance Use: No substance use type: does not use Testing Echocardiogram Date: 01/12/20 LVEF 60% No LVH Increased trabeculation of the LV apex Mild pulmonic valve insufficiency Mild tricuspid regurgitation Normal pulmonary pressures Other Testing Lumbar spine MRI 12/11/23 1. Mild multilevel degenerative disc disease within the lumbar spine. No disc herniations. Several Schmorl's nodes. 2. Patent central canal and neural foramen. 3. No lumbar spine fractures.
--- NOTE | 2024-12-08 17:35 | History & Physical Report ---
Date of Service December 08, 2024 Assessment & Plan (1) Previous delivery affecting , antepartum: Plan: Plan for repeat section and tubal sterilization. We reviewed consent in the office, questions answered. She is sure that she has completed childbearing and desires permanent sterilization procedure. She is aware of risks of surgery and risks of tubal, including regret. History of Present Illness Chief Complaint: repeat Primary Care Provider: Thompson Quintero MD 24yo with [facility] 12/15/24 - scheduled for repeat section and tubal sterilization. and Delivery Plans Previous wishes repeat C/S WITH TUBAL SCHEDULED FOR 12/09/[address] WESLEY AND DR. DUNLAP ASSIST Hep B non immune - aware of immunization at PCP echo since unable to obtain all heart views (and also arrhythmia 08/25 heard) - [facility] [place]-scheduled 09/01, [facility] [place] wnl, no arrhythmia Obesity (BMI 40 and higher @ beginning of ) - 40.7 on 04/18/24 *Growth US @ 32wks *Weekly NSTs @ 34wks *BMI 40 or greater offer detailed/level II anatomy at [facility] - incomplete - see chart (09/17/24) saw everything but sacral spine and ventral wall (multiple attempts)--declines f urther attempts at 34 week visit ([facility]) *BMI 40 or above offer delivery by [facility]. Allergies Allergy/AdvReac Type Severity Reaction Status Date / Time No Known Allergies Allergy Mild Verified 12/08/24 10:30 Home Medications Medication Instructions Recorded Confirmed Type acetaminophen 500 mg tablet 500 mg PO Q6H PRN Pain 10/20/24 12/08/24 History (Tylenol Extra Strength) Patient History Medical History Anxiety and depression Chest discomfort 2019, hx of--followed with [facility]--was cleared of cardiac issues and follows with PCP Convulsive syncope hx of--followed with [facility]--was cleared of cardiac issues and follows with PCP Disc degeneration, lumbar Eczema Elevated blood pressure reading hx, no recent issues Failure to progress in labor History of COVID-19 diagnosed 03/2020--mild symptoms, no symptoms now Morbid obesity with BMI of 40.0-44.9, adult Seizure-like activity per pt seizure was ruled out. last "activity" november 2019, "never actually called a seizure" Skin lesion of breast Slow to wake up after anesthesia "hard for her to stay awake after surgery, after breast reduction at [facility]" Varicella vaccination Surgical History History of wisdom tooth extraction S/P bilateral breast reduction S/P section (2023) Family History Father Hyperlipemia Hypertension Grandmother Type 2 diabetes mellitus Factor V Leiden mutation Hypertension Stroke Grandfather Hypertension Other Myocardial infarction No family history of adverse response to anesthesia Denies family history of Ovarian cancer Prostate cancer Breast cancer Colorectal cancer Social History Smoking Status: Former smoker Tobacco Type: E-cigarettes / Vaping Age Started Using Tobacco: 1; Second Hand Exposure: No; Do You Dip or Chew Tobacco: No; Hx Alcohol Use: Yes Hx Substance Use: No Preferred Language: Hebrew Communication Ability: Effective Visual Impairment: No Limitations Brazer Resistance Required: No Beliefs That Will Affect Care: None marital status: Single marital status details: nishant Fuentes (24) [phone] Current Living Situation: Family Current Living Situation Comment: lives with nishant, daughter, dogs current occupational status: employed current occupation: [employer] Feels Safe at Home: Yes Childhood Exposure to Second-Hand Smoke: No Dental Care, Regularly: Yes Assistive Devices: None Review of Systems All systems reviewed & are unremarkable except as noted in HPI & below Physical Exam Constitutional: WD/WN, vitals as above Respiratory: normal respiratory effort, lungs clear to auscultation no respiratory distress Cardiovascular: Rate/Rhythm: regular rate and regular rhythm Gastrointestinal (Abdomen): Inspection/Auscultation: abdomen normal to inspection Percussion/Palpation: abdomen soft; abdomen nontender Gravid. No s/s chorio or abruption. Skin: no rashes, warm and dry Psychiatric: A+Ox3, euthymic affect Coding Level of Care Code None Diagnoses Previous delivery affecting , antepartum O34.219
[2024-12-09] MEDS ORDERED: SODIUM CHLORIDE 0.9% 100 ML IV PRN (05:36)
[2024-12-09] MEDS: LACTATED RINGER'S 1,000 ML IV SCH ×3 (05:53→13:13)
[2024-12-09 06:00] LABS: Hematocrit (blood only) 34.0 % (37.0-47.0); Hemoglobin 10.8 g/dl (12.0-16.0); Immature Granulocytes # (auto) 0.42 K/uL (0.01-0.20); Immature Granulocytes % (auto) 3.0 %; Mean Corpuscular Hemoglobin 24.2 pg (25.0-34.0); Mean Corpuscular Volume 76.2 fL (80.0-100.0); Platelet Count 278 K/uL (130-400); RDW Standard Deviation 44.9 fL (36.4-46.3); Red Blood Count 4.46 M/uL (4.20-5.40); White Blood Count 14.13 K/ul (4.8-10.8)
[2024-12-09] MEDS ORDERED: ACETAMINOPHEN 500 MG TAB PO SCH (06:00)
[2024-12-09] MEDS: ACETAMINOPHEN 500 MG TAB PO SCH (06:32)
--- NOTE | 2024-12-09 07:14 | History & Physical Bridge Note ---
Date of Service December 09, 2024 History & Physical Bridge Note I have examined the patient, reviewed the History & Physical and in the interval since the performance of the History & Physical I have noted the following changes of clinical significance: no changes noted
[2024-12-09] MEDS ORDERED: ONDANSETRON INJ 2 MG/ML 2 ML VIAL ONE (07:18)
[2024-12-09] MEDS ORDERED: GLYCOPYRROLATE 0.2 MG/ML VIAL ONE (07:18)
[2024-12-09] MEDS ORDERED: DEXAMETHASONE SOD INJ 4 MG/ML VIAL ONE (07:18)
[2024-12-09] MEDS: CITRIC ACID/SODIUM CITRATE 15 ML UDC PO SCH (07:18)
[2024-12-09] MEDS ORDERED: OXYTOCIN 10 UNITS/ML VIAL ONE (07:18)
[2024-12-09] MEDS ORDERED: PHENYLEPHRINE HCL 25 MG/250 ML NSS IV ONE (07:18)
[2024-12-09] MEDS: ceFAZolin 3,000 MG/72.5 ML BAG IV SCH (07:19)
[2024-12-09] MEDS ORDERED: MoRPHine SULFATE PF 1 MG/ML 10 ML AMP/VIAL ONE (07:19)
[2024-12-09] MEDS ORDERED: MEPERIDINE HCL 25 MG/ML CARP/VIAL IV PRN (08:01)
[2024-12-09] MEDS ORDERED: NALBUPHINE HCL INJ 10 MG/ML AMP IV PRN (08:01)
[2024-12-09] MEDS ORDERED: HYDROmorphone INJ 0.5 MG/0.5 ML SYR IV PRN (08:01)
[2024-12-09] MEDS ORDERED: MoRPHine SULFATE PF 1 MG/ML 10 ML AMP/VIAL INT SPINAL ONE (08:01)
[2024-12-09] MEDS ORDERED: NALOXONE HCL 0.4 MG/1 ML VIAL/CARP IV PRN (08:01)
[2024-12-09] MEDS ORDERED: NALOXONE HCL 1 MG in SODIUM CHLORIDE 0.9% 1,000 ML IV PRN (08:01)
[2024-12-09] MEDS ORDERED: METOCLOPRAMIDE HCL 20 MG in SODIUM CHLORIDE 0.9% 50 ML IV PRN (08:01)
[2024-12-09] MEDS ORDERED: diphenhydrAMINE 50 MG/ML VIAL IV PRN (08:01)
[2024-12-09] MEDS ORDERED: LACTATED RINGER'S 500 ML IV PRN (08:01)
[2024-12-09] MEDS ORDERED: NO NARCOTICS OR SEDATIVES SCH (08:15)
[2024-12-09] MEDS ORDERED: DC INTRASPINAL MORPHINE SCH (08:15)
[2024-12-09 08:44] LABS: Base Excess Cord Arterial Bld -6.8 mEq/L (-9-1.8); Base Excess Cord Venous Blood -5.1 mEq/L (-7.7-1.9); CO2 Cord Arterial Blood 60 mmHg (39.1-73.5); Cord Venous Blood PO2 25 mmHg (14.1-43.3); HCO3 Cord Arterial Blood 22 mmol/L (19.7-28.5); O2 Saturation Cord Venous Bld < 60.0 % (<68); Oxygen Sat Cord Arterial Blood < 60.0 % (<60); PO2 Cord Arterial Blood < 20 mmHg (4.1-31.7); pH Cord Arterial Blood 7.18 (7.1-7.38)
[2024-12-09] MEDS ORDERED: CALCIUM CARBONATE 500 MG CHEWABLE TAB PO PRN (09:17)
[2024-12-09] MEDS ORDERED: SENNA 8.6 MG TAB PO PRN (09:17)
[2024-12-09] MEDS ORDERED: MAGNESIUM HYDROXIDE SUSP 30 ML UDC PO PRN (09:17)
[2024-12-09] MEDS ORDERED: BENZOCAINE 20% SPRY 85 APPLN/85 GM CAN EXT PRN (09:17)
[2024-12-09] MEDS ORDERED: PROMETHAZINE 12.5 MG/50.5 ML BAG IV PRN (09:17)
[2024-12-09] MEDS ORDERED: DIPHTHER/TETAN/PERTUS Vaccine (Tdap, Adol/Adult) 0.5mL IM ONE (09:17)
[2024-12-09] MEDS ORDERED: HYDROCORTISONE ACETATE 25 MG SUPP PR PRN (09:17)
[2024-12-09] MEDS: OXYTOCIN 20 UNITS/LR 1,002 ML IV SCH (09:30)
--- NOTE | 2024-12-09 09:30 | Operative Report ---
PG Post Operative Report Pre & Post Diagnosis Operation Date: 12/09/24 07:30 Pre-Op Diagnosis: Previous delivery affecting , desire for section Post-Op Diagnosis: Same; Delivery of a live male child at 0815 I identified the patient and participated in the time-out.: Yes Procedure Operation Date: 12/09/24 07:30 Actual Procedures p Repeat Low Transverse Section - Jo Ann Proctor DO s with Bilateral Tubal Ligation - Jo Ann Proctor DO Surgeon Jo Ann Proctor DO Suggestion Clerk Nessa Pierson MD Estimated Blood Loss 480 (QBL) Findings Consistent with Post-Op Diagnosis Viable male , APGARS 8/9. Weight pending, please see nursery records. Specimens placenta, cord blood, cord gas Drains nails, clear yellow Anesthesia Type Spinal Complications none Disposition Accompanied Patient To Recovery: Yes Disposition: L&D Indications 24yo @ 39 04/20, h/o x 1, desire for repeat and tubal sterilization. Description of Procedure The patient was seen in her labor and delivery room, risks benefits and alternatives to surgery were reviewed. Informed consent obtained. Questions were answered. She was taken to the operating room, spinal anesthesia was administered. She was then prepared and draped in the usual sterile fashion in the supine position with a leftward tilt, using Pannus retractor. Timeout was confirmed. A Pfannenstiel skin incision was made with a scalpel, and carried through to the underlying layer of fascia. Fascia was nicked at midline, and this incision was extended bilaterally. The superior aspect of the fascial incision was grasped with Waqar clamps x2, elevated off the underlying rectus abdominis muscles, and dissected sharply and bluntly. Large amount of scarring - omentum adhesions to fascia. In similar fashion, the inferior aspect of the fascial incision was dissected. The rectus abdominis muscles were , and the peritoneum was entered bluntly digitally. This was extended bilaterally. Incision required separation of bilateral rectus abdominus muscle with Bovie cautery. The bladder flap was taken down carefully using Metzenbaum scissors. Using a new scalpel, a low transverse uterine incision was created. Clear amniotic fluid noted. The was delivered from a cephalic presentation. Kiwi vacuum applied once to get head to hysterotomy, successful. The head delivered, followed by shoulders and body. Spontaneous cry on the field. The cord was doubly clamped and cut, and the was handed off to the waiting cook mayonnaise. A segment was retained for cord gases. Cord blood was obtained. The placenta was delivered spontaneously intact. The uterus was ext eriorized, and cleared of all clots and debris. The hysterotomy incision was reapproximated using 0 Vicryl in a running locked stitch. A second layer of the same suture was used to imbricate the incision. Posterior uterus was evaluated and normal. Bilateral fallopian tubes identified to fimbria, grasped with Noe clamp, and resected from mesosalpinx and uterus with Ligasure device. Excellent hemostasis. The uterus was returned to the abdomen, and gutters were cleared of clots and debris. 2-0 Vicryl used in [id number] sutures at rectus abdominus muscle to obtain hemostasis. Excellent hemostasis was then observed throughout. The fascial incision was reapproximated using 0 Vicryl in a running stitch. The subcutaneous tissue was irrigated, and reapproximated using 2-0 plain gut in a running stitch. The skin was reapproximated using 4-0 Vicryl in a running subcuticular stitch. JOVANNY dressing applied. The patient tolerated the procedure well, and will be taken to the recovery area in stable and good condition. I attest to the content of the Intraoperative Record and any orders documented therein. Any exceptions are noted below. OB Procedure Charges [id number] Add on Tubal for C/S
[2024-12-09] MEDS: ONDANSETRON INJ 2 MG/ML 2 ML VIAL IV PRN (10:01)
[2024-12-09] MEDS: KETOROLAC 30 MG/ML VIAL IV SCH (10:57)
[2024-12-09] MEDS: PROMETHAZINE 6.25 MG/50.25 ML BAG IV PRN (11:11)
--- NOTE | 2024-12-09 11:45 | Anesthesiology Progress Note ---
Date of Service December 09, 2024 Anesthesia Post Procedure Vital Signs Vital Signs: Temp Pulse Resp BP Pulse Ox 12/09/24 11:31 69 100 12/09/24 11:30 68 118/69 12/09/24 11:28 65 89 L 12/09/24 11:26 72 100 12/09/24 11:21 67 99 12/09/24 11:20 63 114/55 L 12/09/24 11:16 67 98 12/09/24 11:11 61 97 12/09/24 11:10 65 120/54 L 12/09/24 11:06 66 97 12/09/24 11:01 74 99 12/09/24 11:00 67 127/69 12/09/24 10:56 66 97 12/09/24 10:51 71 99 12/09/24 10:50 68 103/51 L 12/09/24 10:46 60 98 12/09/24 10:41 69 99 12/09/24 10:40 57 L 121/63 12/09/24 10:36 64 97 12/09/24 10:31 69 99 12/09/24 10:30 74 131/60 12/09/24 10:26 73 98 12/09/24 10:21 85 99 12/09/24 10:20 121 H 118/64 12/09/24 10:16 69 98 12/09/24 10:11 75 99 12/09/24 10:10 66 111/62 12/09/24 10:06 68 98 12/09/24 10:01 70 98 12/09/24 10:00 123/73 12/09/24 09:56 117 H 99 12/09/24 09:51 81 99 12/09/24 09:50 82 113/62 12/09/24 09:46 79 97 12/09/24 09:41 95 H 99 12/09/24 09:40 115 H 124/58 L 12/09/24 09:36 99 12/09/24 09:36 79 12/09/24 09:36 71 119/53 L 12/09/24 09:31 70 122/60 98 12/09/24 09:27 73 102/49 L 12/09/24 09:26 89 98 12/09/24 07:22 77 100 12/09/24 07:17 79 100 12/09/24 07:12 77 100 12/09/24 07:07 76 100 12/09/24 06:03 36.4 C L 18 12/09/24 05:58 85 127/65 Transfer of Care Handoff Completed per policy Notes Mental Status: alert / awake / arousable and participated in evaluation Patient Amnestic to Procedure: Yes Nausea / Vomiting: adequately controlled Pain: adequately controlled Airway Patency, RR, SpO2: stable & adequate BP & HR: stable & adequate Hydration State: stable & adequate Anesthetic Complications: no major complications apparent and Pt Satisfied with anesthetic care
[2024-12-09] MEDS: SODIUM CHLORIDE 0.9% 1,000 ML IV SCH (13:13)
[2024-12-09] MEDS: SIMETHICONE 80 MG CHEW PO SCH (15:37)
[2024-12-09] MEDS: ACETAMINOPHEN 325 MG TAB PO SCH (15:38)
[2024-12-09] MEDS: DOCUSATE SODIUM 100 MG CAP PO SCH (21:17)
[2024-12-09] MEDS: NALOXONE HCL 0.08 MG in SYRINGE 1.8 ML IV PRN (23:26)
[2024-12-10] MEDS ORDERED: diphenhydrAMINE Capsule 25 MG CAP PO PRN (02:01)
[2024-12-10] MEDS ORDERED: ONDANSETRON INJ 2 MG/ML 2 ML VIAL IV PRN (02:01)
[2024-12-10] MEDS ORDERED: HYDROmorphone INJ 0.5 MG/0.5 ML SYR IV PRN (02:02)
[2024-12-10] MEDS ORDERED: PROMETHAZINE 12.5 MG/50.5 ML BAG IV PRN (02:02)
[2024-12-10] MEDS ORDERED: diphenhydrAMINE 50 MG/ML VIAL IV PRN (02:02)
--- NOTE | 2024-12-10 05:52 | Obstetrical Progress Note ---
Date of Service <Daphney Paz DO - Last Filed: 12/10/24 06:46> December 10, 2024 Assessment & Plan <Daphney Paz DO - Last Filed: 12/10/24 06:46> (1) care following delivery: Plan 24 yo post- day 1 s/p . Feels well today. Vital signs stable Continue post- care Encourage ambulation and Pain controlled with ibuprofen Hgb stable <Jo Ann Proctor, DO - Last Filed: 12/10/24 07:00> (1) care following delivery: Subjective <Daphney Paz DO - Last Filed: 12/10/24 06:46> 24 yo post- day 1 s/p . Ambulation: ambulating normally Voiding: no voiding problems Passing Gas:: Yes Passing Stool:: No Diet Tolerance:: regular diet Lochia:: Small Feeding Type:: bottle feeding Current Pain Level: 0/10 Resting comfortably this AM in NAD. She is having bilateral flank pain but states it is manageable. Denies MCDANIELS, CP, SOB, N/V/D, LE pain/swelling. Review of Systems All systems reviewed & are unremarkable except as noted in HPI & below Physical Exam <Daphney Paz DO - Last Filed: 12/10/24 06:46> General: patient resting comfortably, NAD, non-toxic in appearance, AA&O x 4, answers questions appropriately. Skin: warm, dry, intact HEENT: NC/AT, anicteric sclera, conjunctiva without injection, moist mucus membranes. Heart: +S1/S2, regular, no m/r/g Lungs: equal air entry bilaterally, no rales/rhonchi/wheezes Abd: +BS, soft, NT/ND, uterine fundus firm at umbilicus, caesarean incision jovanny dressing C/D/I. Ext: warm, no clubbing/cyanosis or edema, Kayce's neg. Neuro: nonfocal, patient AA&O x 4, speech intact, no facial droop, moving all extremities on command. Results & Data <Daphney Paz DO - Last Filed: 12/10/24 06:46> Vital Signs (Past 12 Hours) Vital Signs Temp Pulse Resp BP Pulse Ox O2 Del Method 12/10/24 03:34 36.6 C 80 18 116/72 100 Room Air 12/10/24 03:00 18 98 12/10/24 02:00 18 99 12/10/24 01:00 18 99 12/09/24 23:41 36.6 C 79 16 112/73 98 Room Air 12/09/24 23:00 18 99 12/09/24 22:00 18 99 12/09/24 20:00 18 99 12/09/24 19:05 36.7 C 88 18 123/73 97 Room Air 12/09/24 18:03 18 98 Laboratory Results OB Labs: Blood Type A Positive 05/19/24 Antibody Screen NEGATIVE 05/19/24 Hgb 10.7 g/dl (12.0-16.0) L 09/20/24 Hct 33.9 % (37.0-47.0) L 09/20/24 MCV 74.6 fL (80.0-100.0) L 05/19/24 Plt Count 281 K/uL (130-400) 05/19/24 Rubella IgG Antibody Immune (Immune) 05/19/24 RPR Nonreactive (Nonreactive) 01/07/23 Treponema pallidum Ab Negative (Negative) 09/20/24 Hep Bs Antigen Negative (Negative) 05/19/24 Hep Bs Antigen NON-REACTIVE (NON-REACTIVE) 01/07/23 Hepatitis C Antibody Negative (Negative) 05/19/24 Hepatitis C Ab (EIA) NON-REACTIVE (NON-REACTIVE) 01/07/23 HIV 1&2 Ab/P24 Ag 4thGn Negative (Negative) 05/19/24 HIV (1&2) Ag & Ab Conf NON-REACTIVE (NON-REACTIVE) 01/07/23 Glucose 1 Hr 50 gm 113 mg/dl (70-130) 09/20/24 OB Optional Labs: Hemoglobin Electrophoresis Interp see note 06/30/24 Chlamydia trachomatis RNA Not Detected (NotDetected) 05/19/24 Neisseria gonorrhoeae RNA Not Detected (NotDetected) 05/19/24 Thyroid Stimulating Hormone (TSH) 1.380 uIu/ml (0.510-4.91) 12/04/19 Supervising Physician <Jo Ann Proctor, DO - Last Filed: 12/10/24 07:00> Co-Signing Physician Notes Resident Physician Supervision Note: I interviewed and examined the patient. Discussed with Dr. Paz and agree with findings and plan as documented in the note. Any exceptions or clarifications are listed here: POD#1 doing well. JOVANNY in place. Continue routine postop care. Documented By: Jo Ann Proctor DO Resident Activity Tracking <Daphney Paz DO - Last Filed: 12/10/24 06:46> Resident Involvement: Resident Care Provided Care Provided: OB Delivery
[2024-12-10] MEDS: PRENATAL VITAMIN 1 TAB PO SCH (07:47)
[2024-12-10] MEDS: FERROUS SULFATE 325 MG TAB PO SCH (07:47)
[2024-12-10 08:08] LABS: Hematocrit (blood only) 27.0 % (37.0-47.0); Hemoglobin 8.4 g/dl (12.0-16.0); Immature Granulocytes # (auto) 0.18 K/uL (0.01-0.20); Immature Granulocytes % (auto) 1.3 %; Mean Corpuscular Hemoglobin 24.6 pg (25.0-34.0); Mean Corpuscular Volume 78.9 fL (80.0-100.0); Platelet Count 178 K/uL (130-400); RDW Standard Deviation 47.9 fL (36.4-46.3); Red Blood Count 3.42 M/uL (4.20-5.40); White Blood Count 14.08 K/ul (4.8-10.8)
[2024-12-10 08:37] VITALS: O2SAT 99
[2024-12-10] MEDS ORDERED: KETOROLAC 30 MG/ML VIAL IV PRN (09:17)
[2024-12-10] MEDS: IBUPROFEN 600 MG TAB PO SCH (09:19)
--- NOTE | 2024-12-11 07:25 | Obstetrical Progress Note ---
Date of Service December 11, 2024 Assessment & Plan (1) care following delivery: Plan 24 yo post- day 2 s/p . Feels well today. Vital signs stable Continue post- care Encourage ambulation and Pain controlled with ibuprofen Hgb stable Discharge today, follow up with Dr. Proctor in 6 weeks for appt. Make appointment to remove jason dressing in 1 week. Subjective 24 yo post- day 2 s/p . Ambulation: ambulating normally Voiding: no voiding problems Passing Gas:: Yes Passing Sto Yesol:: Diet Tolerance:: regular diet Lochia:: Small Feeding Type:: bottle feeding Current Pain Level: 2/10 Resting comfortably this AM in NAD. Denies MCDANIELS, CP, SOB, N/V/D, LE pain/swelling. Physical Exam General: patient resting comfortably, NAD, non-toxic in appearance, AA&O x 4, answers questions appropriately. Skin: warm, dry, intact HEENT: NC/AT, anicteric sclera, conjunctiva without injection, moist mucus membranes. Heart: +S1/S2, regular, no m/r/g Lungs: equal air entry bilaterally, no rales/rhonchi/wheezes Abd: +BS, soft, NT/ND, uterine fundus firm 3 FBs below umbilicus, caesarean incision jason dressing C/D/I. Ext: warm, no clubbing/cyanosis or edema, Kayce's neg. Neuro: nonfocal, patient AA&O x 4, speech intact, no facial droop, moving all extremities on command. Results & Data Vital Signs (Past 12 Hours) Vital Signs Temp Pulse Resp BP Pulse Ox O2 Del Method 12/11/24 00:15 36.7 C 87 16 111/74 99 Room Air 12/10/24 19:35 Room Air 12/10/24 19:35 36.7 C 80 18 105/70 99 Room Air Laboratory Results OB Labs: Blood Type A Positive 05/19/24 Antibody Screen NEGATIVE 05/19/24 Hgb 10.7 g/dl (12.0-16.0) L 09/20/24 Hct 33.9 % (37.0-47.0) L 09/20/24 MCV 74.6 fL (80.0-100.0) L 05/19/24 Plt Count 281 K/uL (130-400) 05/19/24 Rubella IgG Antibody Immune (Immune) 05/19/24 RPR Nonreactive (Nonreactive) 01/07/23 Treponema pallidum Ab Negative (Negative) 09/20/24 Hep Bs Antigen Negative (Negative) 05/19/24 Hep Bs Antigen NON-REACTIVE (NON-REACTIVE) 01/07/23 Hepatitis C Antibody Negative (Negative) 05/19/24 Hepatitis C Ab (EIA) NON-REACTIVE (NON-REACTIVE) 01/07/23 HIV 1&2 Ab/P24 Ag 4thGn Negative (Negative) 05/19/24 HIV (1&2) Ag & Ab Conf NON-REACTIVE (NON-REACTIVE) 01/07/23 Glucose 1 Hr 50 gm 113 mg/dl (70-130) 09/20/24 OB Optional Labs: Hemoglobin Electrophoresis Interp see note 06/30/24 Chlamydia trachomatis RNA Not Detected (NotDetected) 05/19/24 Neisseria gonorrhoeae RNA Not Detected (NotDetected) 05/19/24 Thyroid Stimulating Hormone (TSH) 1.380 uIu/ml (0.510-4.91) 12/04/19 Resident Activity Tracking Resident Involvement: Resident Care Provided Care Provided: OB Delivery
[2024-12-11 07:52] LABS: Hematocrit (blood only) 28.5 % (37.0-47.0); Hemoglobin 8.6 g/dl (12.0-16.0)
[2024-12-11] MEDS ORDERED: IBUPROFEN 600 MG TAB PO PRN (09:17)
[2024-12-11 10:31] VITALS: RESP 18
[2024-12-11] MEDS ORDERED: ACETAMINOPHEN 325 MG TAB PO PRN (15:17)
[2024-12-11 17:32] VITALS: BP 139/84; PULSE 94; TEMP 98.4
--- NOTE | 2024-12-14 09:34 | Discharge Summary ---
Date of Service December 14, 2024 Admission HPI Per Admitting Provider 24yo with EDC 12/15/24 - scheduled for repeat section and tubal sterilization. and Delivery Plans Previous wishes repeat C/S WITH TUBAL SCHEDULED FOR 12/09/[address] PROCTOR AND DR[address] DUNLAP ASSIST Hep B non immune - aware of immunization at PCP echo since unable to obtain all heart views (and also arrhythmia 08/25 heard) [place] [facility] [place], [facility] [place], no arrhythmia Obesity (BMI 40 and higher @ beginning of ) - 40.7 on 04/18/24 *Growth US @ 32wks *Weekly NSTs @ 34wks *BMI 40 or greater offer detailed/level II anatomy at [facility] - incomplete - see chart (09/17/24) saw everything but sacral spine and ventral wall (multiple attempts)--declines further attempts at 34 week visit (ak) *BMI 40 or above offer delivery by [facility]. Admission Exam (Per Admitting) Constitutional WD/WN, vitals as above Respiratory normal respiratory effort, lungs clear to auscultation no respiratory distress Cardiovascular Rate/Rhythm: regular rate and regular rhythm Gastrointestinal (Abdomen) Inspection/Auscultation: abdomen normal to inspection Percussion/Palpation: abdomen soft; abdomen nontender Skin no rashes, warm and dry Psychiatric A+Ox3, euthymic affect Discharge Data Consultations 12/09/24 05:30 Consult Anesthesiology Stat Procedures Performed Operation Date: 12/09/24 07:30 Actual Procedures p Section - Jo Ann Proctor DO s with Bilateral Tubal Ligation - Jo Ann Proctor DO Hospital Course (1) care following delivery: Plan 24 yo post- day 1 s/p . Feels well today. Vital signs stable Continue post- care Encourage ambulation and Pain controlled with ibuprofen Hgb stable Supervising Physician Co-Signing Physician Notes Resident Physician Supervision Note: I interviewed and examined the patient. Discussed with Dr. Paz and agree with findings and plan as documented in the note. Any exceptions or clarifications are listed here: POD#1 doing well. JOVANNY in place. Continue routine postop care. Documented By: Jo Ann Proctor DO Coding Level of Care Code None Diagnoses care following delivery Z39.2
== END 2024-12-11 18:15 | disposition home or self-care (01) | DRG 785 ==
LOC: 4S1 05:31 → EDSTATUS 07:30 → 4E2 12:34
PROC: M.PPTLD (2024-12-09 07:30)
DX: E66.01 Morbid (severe) obesity due to excess calories; Z30.2 Encounter for sterilization; Z37.0 Single live birth; Z3A.39 39 weeks gestation of pregnancy; O99.214 Obesity complicating childbirth; O34.211 Maternal care for low transverse scar from previous cesarean delivery